=== PATIENT | female | born 1990 | race Hispanic/Latino ===

== ENCOUNTER 2017-09-22 14:49 | Emergency (ER) | payer OTHER ==
--- NOTE | 2017-09-22 16:59 | Emergency Department Report ---
Chief Complaint: Neck Pain/Injury Stated Complaint: CHEST PAIN - HPI History of Present Illness: 26-year-old female presents to the emergency department with complaint of a one to 2 day history of some left-sided neck pain that is like a burning and pulsating sensation that radiates up towards the side of her head. This started after she was doing some yoga. She also began having some palpitations and a similar sensation in the left upper portion of her chest. This caused her to feel very anxious and says that she had a full on panic attack. Currently she is feeling slightly better but still has the neck discomfort. She denies any fever, vision change, shortness of breath. She has not taken anything for her symptoms prior to presentation. She does have a history of anxiety but has not had an episode this bad in quite some time and therefore is not on treatment for it. - ROS Review of Systems: Positive for neck pain, headache, palpitations, anxiety Negative for shortness of breath, fever, nausea, vomiting - Exam Vital Signs: Vital Signs 09/22/17 15:04 Temperature 98.4 F Pulse Rate 98 H Respiratory 18 Rate Blood Pressure 134/71 O2 Sat by Pulse 99 Oximetry Physical Exam: Heart lung sounds are normal to auscultation. There is some reproducible left lateral neck pain to palpation. she is currently calm and appropriate. MSE screening note: Focused history and physical exam performed. Due to findings the following was ordered: I have ordered a CBC, BMP and TSH. She will have an EKG. ED Disposition for MSE Condition: Stable Referrals: PRIMARY CARE, [Primary Care Provider] - 3-5 Days
[2017-09-22 17:26] LABS: Basophils # (Auto) 0.1 K/mm3 (0.0-0.1); Basophils % (Auto) 0.6 % (0.0-1.8); Eosinophils % (Auto) 0.3 % (0.0-4.3); Hematocrit 46.6 % (30.3-42.9); Hemoglobin 15.8 gm/dl (10.1-14.3); Lymphocytes # (Auto) 2.2 K/mm3 (1.2-5.4); Lymphocytes % (Auto) 22.4 % (13.4-35.0); Mean Corpuscular HGB Conc 34 % (30-34); Mean Corpuscular Hemoglobin 30 pg (28-32); Mean Corpuscular Volume 89 fl (79-97); Monocytes # (Auto) 0.4 K/mm3 (0.0-0.8); Monocytes % (Auto) 4.4 % (0.0-7.3); Platelet Count 268 K/mm3 (140-440); Red Blood Count 5.24 M/mm3 (3.65-5.03); Red Cell Distribution Width 12.6 % (13.2-15.2)
[2017-09-22 17:46] VITALS: BP 106/60
[2017-09-22 17:56] LABS: HCG Qualitative,Urine Negative (Negative)
[2017-09-22 17:59] LABS: Bilirubin,Urine NEG (Negative); Blood,Urine SM (Negative); Color,Urine Straw (Yellow); Protein,Urine <15 mg/dL mg/dL (Negative); Urobilinogen,Urine < 2.0 mg/dL (<2.0); WBC,Urine < 1.0 /HPF (0.0-6.0)
[2017-09-22 18:02] LABS: BUN/Creatinine Ratio 14; Blood Urea Nitrogen 7 mg/dL (7-17); Calcium 9.5 mg/dL (8.4-10.2); Hemolysis Index 6
--- NOTE | 2017-09-22 20:13 | Emergency Department Report ---
ED Neck Pain/Injury HPI - General Chief Complaint: Neck Pain/Injury Stated Complaint: CHEST PAIN Time Seen by Provider: 09/22/17 19:18 Mode of arrival: Stretcher Limitations: No Limitations - History of Present Illness Initial Comments: This is a 26-year-old female nontoxic, well nourished in appearance, no acute signs of distress presents to the ED with c/o of left-sided neck pain that started 1 day ago. Patient stated that she was year-old and strained her neck and in develop pain worsening throughout the day. Patient denies any trauma to that region. Patient describes pain as burning sensation of pulsating sensation that radiates towards her head. Patient stated that she was at work and developed some palpitations and pain in the left upper portion of her chest. Patient stated that this occurred when she had a full panic attack today but stated currently has resolved without medical treatment in ED. Patient denies any chest pain, shortness of breath, fever, chills, nausea, vomiting, headache, stiff neck, numbness, tingling, abdominal pain, back pain, or urinary symptoms. Patient denies any allergies. Past medical history includes anxiety. MD Complaint: neck pain -: days(s) (1) Place: other Radiation: left lateral Severity: mild Severity scale (0 -10): 8 Quality: aching Consistency: constant Improves With: immobilization Worsens With: movement of neck Context: turning/bending Associated Symptoms: none. denies: headache, fever, numbness, tingling, weakness, vertigo, difficulty walking, swollen glands, difficulty swallowing, nausea, vomiting Treatments Prior to Arrival: none - Related Data Previous Rx's Medication Instructions Recorded Last Taken Type Cyclobenzaprine [Flexeril] 10 mg PO BID PRN #10 tablet 09/22/17 Unknown Rx Ibuprofen [Motrin] 600 mg PO Q8H PRN #30 tablet 09/22/17 Unknown Rx Allergies Allergy/AdvReac Type Severity Reaction Status Date / Time No Known Allergies Allergy Unverified 09/22/17 15:09 ED Review of Systems ROS: Stated complaint: CHEST PAIN Other details as noted in HPI Constitutional: denies: chills, fever Eyes: denies: eye pain, eye discharge, vision change ENT: denies: ear pain, throat pain Respiratory: denies: cough, shortness of breath, wheezing Cardiovascular: denies: chest pain, palpitations Endocrine: no symptoms reported Gastrointestinal: denies: abdominal pain, nausea, diarrhea Genitourinary: denies: urgency, dysuria, discharge Musculoskeletal: denies: back pain, joint swelling, arthralgia Skin: denies: rash, lesions Neurological: denies: headache, weakness, paresthesias Psychiatric: denies: anxiety, depression Hematological/Lymphatic: denies: easy bleeding, easy bruising ED Past Medical Hx - Past Medical History Previous Medical History?: Yes Additional medical history: Anxiety - Surgical History Past Surgical History?: No - Social History Smoking Status: Never Smoker Substance Use Type: None - Medications Home Medications: Home Medications Medication Instructions Recorded Confirmed Last Taken Type Cyclobenzaprine [Flexeril] 10 mg PO BID PRN #10 tablet 09/22/17 Unknown Rx Ibuprofen [Motrin] 600 mg PO Q8H PRN #30 tablet 09/22/17 Unknown Rx ED Physical Exam - General Limitations: No Limitations General appearance: alert, in no apparent distress - Head Head exam: Present: atraumatic, normocephalic - Eye Eye exam: Present: normal appearance Pupils: Present: normal accommodation - ENT ENT exam: Present: normal exam, mucous membranes moist - Neck Neck exam: Present: normal inspection, tenderness, full ROM. Absent: meningismus, lymphadenopathy - Respiratory Respiratory exam: Present: normal lung sounds bilaterally. Absent: respiratory distress, wheezes, rales, rhonchi, stridor, chest wall tenderness, accessory muscle use, decreased breath sounds, prolonged expiratory - Cardiovascular Cardiovascular Exam: Present: regular rate, normal rhythm, normal heart sounds. Absent: irregular rhythm, systolic murmur, diastolic murmur, rubs, gallop - GI/Abdominal GI/Abdominal exam: Present: soft, normal bowel sounds. Absent: distended, tenderness, guarding, rebound, rigid, diminished bowel sounds - Rectal Rectal exam: Present: deferred - Extremities Exam Extremities exam: Present: normal inspection, full ROM, normal capillary refill - Back Exam Back exam: Present: normal inspection, full ROM, paraspinal tenderness (left lateral paracervical). Absent: tenderness, CVA tenderness (R), CVA tenderness ( L), muscle spasm, vertebral tenderness, rash noted - Expanded Back Exam Expanded Back exam: Absent: saddle anesthesia Back exam: Negative Straight Leg Raising: Left, Right - Neurological Exam Neurological exam: Present: alert, oriented X3, CN II-XII intact, normal gait - Psychiatric Psychiatric exam: Present: normal affect, normal mood - Skin Skin exam: Present: warm, dry, intact, normal color. Absent: rash ED Course Vital Signs 09/22/17 09/22/17 15:04 17:45 Temperature 98.4 F Pulse Rate 98 H 73 Respiratory 18 18 Rate Blood Pressure 134/71 Blood Pressure 106/60 [Left] O2 Sat by Pulse 99 99 Oximetry - Reevaluation(s) Reevaluation #1: 09/22/17 20:14 Patient is speaking in full sentences with no signs of distress noted. - Consultations Consultation #1: 09/22/17 20:14 Patient has been consulted with Dr. Mendiola about patient history, physical exam, and labs and examined and screened patient and agrees to ED plan of care and discharge plan of care. ED Medical Decision Making - Lab Data Result diagrams: 09/22/17 17:14 09/22/17 17:14 - Medical Decision Making This is a 26-year-old female that presents with neck muscle strain and anxiety. Patient is stable and was examined by me and Dr. Mendiola. Labs obtained within normal limits. EKG normal sinus rhythm with no ST abnormalities. UA normal. test negative. There is no nuchal rigidity. No midline spinal tenderness. Patient stated that symptoms has resolved and she feels much better. Patient discharged with Motrin and Flexeril and was instructed not to operate any machinery while taking Flexeril due to possible drowsiness. Patient was instructed referred to Follow-up with a primary care doctor in 3-5 days or if symptoms worsen and continue return to emergency room as soon as possible. At time of discharge, the patient does not seem toxic or ill in appearance. No acute signs of distress noted. Patient agrees to discharge treatment plan of care. No further questions noted by the patient. Critical care attestation.: If time is entered above; I have spent that time in minutes in the direct care of this critically ill patient, excluding procedure time. ED Disposition Clinical Impression: Anxiety Neck muscle strain Qualifiers: Encounter type: initial encounter Qualified Code(s): S16.1XXA - Strain of muscle, fascia and tendon at neck level, initial encounter Disposition: DC- TO HOME OR SELFCARE Is pt being admited?: No Does the pt Need Aspirin: No Condition: Stable Instructions: Ibuprofen (By mouth), Cyclobenzaprine (By mouth), Muscle Strain ( ED), Anxiety (ED) Additional Instructions: Follow-up with a primary care doctor in 3-5 days or if symptoms worsen and continue return to emergency room as soon as possible. Take ibuprofen and Flexeril as prescribed. Do not operate heavy machinery while taking Flexeril due to sedation Prescriptions: Cyclobenzaprine [Flexeril] 10 mg PO BID PRN #10 tablet PRN Reason: Muscle Spasm Ibuprofen [Motrin] 600 mg PO Q8H PRN #30 tablet PRN Reason: Pain Referrals: PRIMARY CARE, [Primary Care Provider] - 3-5 Days TOBIN SYLVESTER MD [Staff Physician] - 3-5 Days [facility] [Outside] - 3-5 Days [facility] [Outside] - 3-5 Days Forms: Work/School Release Form(ED)
== END 2017-09-22 21:01 | disposition home or self-care (01) ==
LOC: ED 14:49
DX: S16.1XXA Strain of muscle, fascia and tendon at neck level, initial encounter (principal); F41.9 Anxiety disorder, unspecified; X58.XXXA Exposure to other specified factors, initial encounter; Y93.89 Activity, other specified; Y92.89 Other specified places as the place of occurrence of the external cause; Y99.8 Other external cause status
CPT/HCPCS: 36415; 80048; 81001; 81025; 84443; 85025; 93005; 93010; 99283